=== PATIENT | female | born 1945 | race Caucasian/White ===

== ENCOUNTER → 2016-06-06 | Outpatient (CLI) | payer MEDICARE, OTHER ==
[2016-06-06 09:53] LABS: CHLORIDE,CL 105 mmol/L (98-110); SODIUM,NA 139 mmol/L (136-146)
== END | disposition home or self-care (01) ==
LOC: MW.CHNEURO 09:15
PROVIDERS: ATTEND Psychiatry & Neurology Neuromuscular Medicine
DX: G50.0 Trigeminal neuralgia (principal)
CPT/HCPCS: 36415; 80048; 80156; 99214

== ENCOUNTER → 2016-07-31 | Outpatient (CLI) | payer MEDICARE, OTHER ==
[2016-07-31 12:25] LABS: CHLORIDE,CL 106 mmol/L (98-110); SODIUM,NA 141 mmol/L (136-146)
== END ==
LOC: MW.CHNEURO 11:34
PROVIDERS: ATTEND Psychiatry & Neurology Neuromuscular Medicine
DX: G35 Multiple sclerosis (principal); G50.0 Trigeminal neuralgia
CPT/HCPCS: 36415; 80053; 85025; 99214